=== PATIENT | female | born 1985 | race African-American/Black ===

== ENCOUNTER 2017-03-12 18:25 | Emergency (ER) | payer SELFPAY ==
[~2017-03-12] VITALS: Ht 160 cm; Wt 72.6 kg
[~2017-03-12 18:25] MED LIST: NKM; ZOFRAN4 MG ORAL
[2017-03-12 18:42] VITALS: BP 145/87
[2017-03-12 19:18] LABS: APPEARANCE,URINE VERY CLOUDY; BILIRUBIN, URINE NEGATIVE (NEGATIVE); GLUCOSE, URINE (UA) NEGATIVE (NEGATIVE); KETONES,URINE 2+ (NEGATIVE); LEUKOCYTE ESTERASE ,URINE 3+ (NEGATIVE); NITRITE,URINE NEGATIVE (NEGATIVE); PH,URINE 5 (4.5-8.0); PROTEIN,URINE NEGATIVE (NEGATIVE); UROBILINOGEN,URINE 1 MG/DL (0.0-1.0)
[2017-03-12 19:22] LABS: COLOR,URINE YELLOW
[2017-03-12] MEDS ORDERED: IBUPROFEN600 MG ORAL (19:44)
[2017-03-12] MEDS ORDERED: NITROFURANTOIN100 M2 ORAL (19:44)
[2017-03-12 19:55] VITALS: BP 145/87
--- NOTE | 2017-03-12 22:24 | Emergency Room Report ---
History of Present Illness General Chief Complaint: Abdominal Pain Source: Patient Present Illness [facility] The patient is a 31-year-old female presenting for lower abdominal pain. She states that she is currently menstruating. Pain is 8/10 dull ache and does not radiate from the mid lower abdomen. She admits to increased urinary frequency but denies other symptoms including dysuria or vaginal discharge. She denies any back pain, nausea, vomiting, fever, chills Allergies: Coded Allergies: No Known Allergies (Unverified , 12/09/12) Patient History Past Medical History: see triage record Pertinent Family History: none Reviewed Nursing Documentation: PMH: Agreed, PSxH: Agreed Nursing Documentation-PMH Past Medical History: No Stated History Review of Systems All Other Systems: negative except mentioned in HPI Physical Exam Vital Signs Date Time Temp Pulse Resp B/P (MAP) Pulse Ox O2 Delivery O2 Flow Rate FiO2 03/12/17 18:32 98.2 117 20 145/87 97 Room Air Sp02 EP Interpretation: reviewed, normal General Appearance: no apparent distress, alert, GCS 15, non-toxic Head: normocephalic, atraumatic Eyes: bilateral eye normal inspection, bilateral eye PERRL Gastrointestinal: normal bowel sounds, soft, non-distended, no guarding, no rebound, tenderness - suprapubic region Musculoskeletal: back normal, gait/station normal, normal range of motion, non- tender Neurologic: alert, oriented x3, responsive, motor strength/tone normal, sensory intact, speech normal Psychiatric: judgement/insight normal, memory normal, mood/affect normal, no suicidal/homicidal ideation Skin: normal color, no rash, warm/dry, well hydrated Medical Decision Making PA Attestation Dr. Chadwick is my supervising physician. Patient management was discussed with my supervising physician Diagnostic Impression: Primary Impression: UTI (urinary tract infection) Qualified Codes: N39.0 - Urinary tract infection, site not specified; R31.9 - Hematuria, unspecified ER Course The patient is a 31-year-old female presenting for lower abdominal pain. Differential diagnosis considered but not limited to: UTI, BV, yeast infection, pyelonephritis, PID, PE: Vitals WNL. NAD. Abdomen: Normal appearance. Non distended. No ecchymosis. Normal BS. TTP over suprapubic region only. No McBurney point tenderness. No guarding. No CVA tenderness Urinalysis is consistent with urinary tract infection The patient discharged home with a prescription for Macrobid and is given ER precautions. Laboratory Tests Test 03/12/17 18:40 Urine Color Yellow Urine Appearance Very cloudy Urine pH 5 (4.5-8.0) Urine Specific [place] 1.020 (1.005-1.035) Urine Protein Negative (NEGATIVE) Urine Glucose (UA) Negative (NEGATIVE) Urine Ketones 2+ (NEGATIVE) H Urine Occult Blood 3+ (NEGATIVE) H Urine Nitrite Negative (NEGATIVE) Urine Bilirubin Negative (NEGATIVE) Urine Urobilinogen 1 MG/DL (0.0-1.0) H Urine Leukocyte Esterase 3+ (NEGATIVE) H Urine RBC 2-4 /HPF (0 - 2) H Urine WBC 5-10 /HPF (0 - 2) H Urine Squamous Epithelial Cells Few /LPF (NONE/OCC) Urine Amorphous Sediment Many /LPF (NONE) H Urine Bacteria Many /HPF (NONE) H Urine HCG, Qualitative Negative Lab Results Impression bacteria with WBCs Last Vital Signs Date Time Temp Pulse Resp B/P (MAP) Pulse Ox O2 Delivery O2 Flow Rate FiO2 03/12/17 19:55 98.2 20 145/87 97 Room Air 03/12/17 18:32 117 Status: improved Disposition: HOME, SELF-CARE Condition: Improved Scripts Nitrofurantoin Monohyd/M-Cryst* (MACROBID 100 MG*) 100 Mg Capsule 100 MG ORAL EVERY 12 HOURS, #14 CAP Prov: ELSIE GARRIDO P.A. 03/12/17 Ibuprofen* (MOTRIN*) 600 Mg Tablet 600 MG ORAL Q8H Y for For Pain, #30 TAB 0 Refills Prov: ELSIE GARRIDO P.A. 03/12/17 Patient Instructions: Urinary Tract Infection Additional Instructions: I discussed my findings with the patient. All questions and concerns have been answered. Treatment and medication compliance have been addressed. I advised the patient that they need to follow up with PMD in 3-5 days. Return to ED if symptoms worsen, new symptoms arise, or if needed for any reason. Patient verbalized understanding of discharge instructions. ELSIE GARRIDO Mar 12, 2017 22:24
== END 2017-03-12 19:55 | disposition home or self-care (01) ==
LOC: EMR 19:01
DX: N39.0 Urinary tract infection, site not specified (principal)
CPT/HCPCS: 81003; 81025; 87086; 99284